=== PATIENT | female | born 1970 | race Caucasian/White ===

== ENCOUNTER 2016-09-03 08:13 | Emergency (ER) | payer OTHER ==
[~2016-09-03 08:13] MED LIST: CERTAGEN1 EACH PO; ELAVIL25 MG PO; FEOSOL325 MG PO; HYDROXYZINE HCL25 MG PO; NEURONTIN300 MG PO; PEPCID40 MG PO; VITAMIN B-1100 MG PO; VITAMIN K PO
[2016-09-03 09:08] LABS: BASOPHIL 1.1 % (0-2); EOSINOPHIL 2.1 % (0-5); HCT 23.4 % (37.0-47.0); LYMPHOCYTE 42.6 % (15-48); MCH 21.9 pg (25.0-31.0); MCHC 29.9 g/dL (32.0-36.0); MCV 73.1 fL (78.0-100.0); MONOCYTE 10.1 % (0-12); NEUTROPHIL 44.1 % (41-80); RDW 21.2 % (11.5-14.0)
[2016-09-03 09:12] LABS: INR 1.46 (0.9-1.2); PROTHROMBIN TIME 17.2 SECONDS (11.7-14.0); PTT 39.9 SECONDS (23.2-31.4)
[2016-09-03 09:18] LABS: PLT 36 K/uL (150-400); WBC 1.9 K/uL (4.0-10.5)
[2016-09-03 09:19] LABS: ALBUMIN 3.5 g/dL (3.5-5.0); BILIRUBIN - TOTAL 1.9 mg/dL (0.1-1.0); CREATININE 0.5 mg/dL (0.5-1.0); GLOBULIN (CALCULATION) 4.6 g/dL (2.2-4.2); POTASSIUM 3.8 mmol/L (3.5-5.1); TOTAL PROTEIN 8.1 g/dL (6.4-8.3)
[2016-09-03 10:58] LABS: BILIRUBIN NEGATIVE (NEGATIVE); BLOOD 1+ Ery/uL (NEGATIVE); CLARITY CLEAR (CLEAR); COLOR YELLOW (YELLOW); GLUCOSE (U) NORMAL (NORMAL); KETONE (U) NEGATIVE (NEGATIVE); LEUKOCYTES 2+ Leu/uL (NEGATIVE); NITRITE POSITIVE (NEGATIVE); PROTEIN NEGATIVE (NEGATIVE); UROBILINOGEN 0.2 mg/dL (0.2-1.0)
[2016-09-03 11:05] LABS: BACTERIA 4+
[2016-09-03 11:06] LABS: SQUAMOUS EPITHELIAL CELLS >50
[2016-09-03 11:08] LABS: AMPHETAMINES NEGATIVE (NEGATIVE); BARBITURATES NEGATIVE (NEGATIVE); BENZODIAZEPINES NEGATIVE (NEGATIVE); COCAINE NEGATIVE (NEGATIVE); MARIJUANA (THC) NEGATIVE (NEGATIVE); METHADONE NEGATIVE (NEGATIVE); TRICYCLIC ANTIDEPRESSANT NEGATIVE (NEGATIVE)
== END 2016-09-03 11:35 | disposition other institution (70) ==
LOC: FER 08:13
PROVIDERS: Emergency Medicine
DX: D69.6 Thrombocytopenia, unspecified (principal); D61.818 Other pancytopenia; F10.20 Alcohol dependence, uncomplicated; K92.1 Melena; R11.2 Nausea with vomiting, unspecified; K76.0 Fatty (change of) liver, not elsewhere classified; Z79.899 Other long term (current) drug therapy; Z98.890 Other specified postprocedural states; Y90.8 Blood alcohol level of 240 mg/100 ml or more
CPT/HCPCS: 36415; 71010; 80053; 80305; 81001; 83690; 85025; 85610; 85730; 86850; 86900; 86901; 86922; 93005; G0480